=== PATIENT | male | born 1975 | race Caucasian/White ===

== ENCOUNTER 2017-04-30 17:45 | Emergency (ER) | payer BC ==
[2017-04-30] MEDS ORDERED: HYDROCHLOROTHIAZIDE 25 MG TABLET PO ONE (19:50)
--- NOTE | 2017-04-30 19:57 | ER Document Report ---
ED Medical Screen (RME) - General Chief Complaint: High Blood Pressure Stated Complaint: BLOOD PRESSURE PROBLEM Time Seen by Provider: 04/30/17 19:48 Mode of Arrival: Ambulatory Information source: Patient TRAVEL OUTSIDE OF THE [place] IN LAST 30 DAYS: No - HPI Onset: Other - 2 MONTHS OR MORE Onset/Duration: Gradual, Waxing and waning Context: Patient states that, for years he has been told occasionally that his blood pressure was high and need to be further evaluated. He has neglected to do so. Recently he has become more concerned, so he presents himself to the emergency department for treatment on this date. Quality of pain: Dull, Pressure Severity: Mild Associated Symptoms: Headache. denies: Chest pain, Nausea, Shortness of breath , Sweating Exacerbated by: Denies Relieved by: Denies Similar symptoms previously: Yes - SEE ABOVE Recently seen / treated by doctor: No - Related Data Smoking: Non-smoker Frequency of alcohol use: Rare Drug Abuse: None What do you do for a living?: [employer] Allergies/Adverse Reactions: No Known Allergies Allergy (Verified 04/30/17 17:45) Past Medical History - General Information source: Patient - Social History Cigarette use (# per day): No Chew tobacco use (# tins/day): No Frequency of alcohol use: Rare Drug Abuse: None Lives with: Family Family history: Hypertension - Past Medical History Cardiac Medical History: Reports: None Pulmonary Medical History: Reports: None EENT Medical History: Reports: None Neurological Medical History: Reports: None Endocrine Medical History: Reports: None Renal/ Medical History: Reports: None. Denies: Hx Peritoneal Dialysis Malignancy Medical History: Reports None GI Medical History: Reports: None Musculoskeltal Medical History: Reports None Psychiatric Medical History: Reports: None Past Surgical History: Reports: Hx Tonsillectomy Review of Systems - Review of Systems Constitutional: No symptoms reported EENT: No symptoms reported Cardiovascular: No symptoms reported Respiratory: No symptoms reported Gastrointestinal: No symptoms reported Musculoskeletal: No symptoms reported Neurological/Psychological: See HPI Physical Exam - Vital signs Vitals: Temp Pulse Resp BP Pulse Ox 99.3 F 112 H 22 H 158/106 H 97 04/30/17 18:17 04/30/17 18:17 04/30/17 18:17 04/30/17 18:17 04/30/17 18:17 Interpretation: Hypertensive - HAS PARTIALLY RESOLVED SINCE TRIAGE EVAL., Tachycardic, Tachypneic - General General appearance: Appears well, Alert, Anxious In distress: None - HEENT Head: Normocephalic Eyes: Normal Conjunctiva: Normal Ears: Normal Nasal: Normal Mouth/Lips: Normal Mucous membranes: Normal - Respiratory Respiratory status: No respiratory distress Breath sounds: Normal - Cardiovascular Rhythm: Regular Heart sounds: Normal auscultation Murmur: No - Abdominal Inspection: Normal Distension: No distension - Extremities General upper extremity: Normal inspection General lower extremity: Normal inspection. No: Edema - Neurological Neuro grossly intact: Yes Cognition: Normal Orientation: AAOx4 - Psychological Associated symptoms: Normal affect, Normal mood - Skin Skin Temperature: Warm Skin Moisture: Dry Skin Color: Normal Skin Turgor: Elastic Course - Vital Signs Vital signs: Temp Pulse Resp BP Pulse Ox 99.3 F 96 16 146/99 H 96 04/30/17 18:17 04/30/17 19:23 04/30/17 19:23 04/30/17 19:23 04/30/17 19:23 - Laboratory Result Diagrams: 04/30/17 20:55 04/30/17 20:55 Doctor's Discharge - Discharge Clinical Impression: Essential hypertension Condition: Stable Disposition: HOME, SELF-CARE Instructions: High Blood Pressure, Requiring Treatment ([facility]), Hydrochlorothiazide ([facility]) Additional Instructions: BEGIN TAKING HYDROCHLOROTHIAZIDE DIRECTED, ONCE A DAY. FOLLOW UP WITH PRIMARY CARE PROVIDER OF YOUR CHOICE. YOUR BLOOD PRESSURE WILL NEED TO BE RE-CHECKED PERIODICALLY, AND CHANGES IN YOUR MEDICATIONS AND DOSAGE WILL LIKELY BE NECESSARY FOR SATISFACTORY CONTROL. RETURN TO E.R. FOR RE-EVALUATION IF PROBLEMS ARISE, OR IF YOU FEEL YOUR CONDITION IS WORSENING. Prescriptions: Hydrochlorothiazide 25 mg PO DAILY #30 tablet
[2017-04-30 21:40] LABS: ABSOLUTE EOSINOPHILS # (AUTO) 0.2 10^3/uL (0.0-0.6); ABSOLUTE LYMPHOCYTES (AUTO) 0.9 10^3/uL (0.5-4.7); ABSOLUTE MONOCYTES (AUTO) 0.9 10^3/uL (0.1-1.4); ABSOLUTE NEUT (AUTO) 2.8 10^3/uL (1.7-8.2); BASOPHILS % (AUTO) 0.8 % (0-2); EOSINOPHILS % (AUTO) 3.1 % (0-6); HEMATOCRIT 50.9 % (37.9-51.0); HEMOGLOBIN 17.5 g/dL (13.5-17.0); LYMPHOCYTES % (AUTO) 18.6 % (13-45); MEAN CORPUSCULAR HEMOGLOBIN 29.6 pg (27.0-33.4); MEAN CORPUSCULAR HGB CONC 34.3 g/dL (32.0-36.0); MEAN CORPUSCULAR VOLUME 86 fl (80-97); MONOCYTES % (AUTO) 19.1 % (3-13); PLATELET COUNT 215 10^3/uL (150-450); SEGMENTED NEUTROPHILS % (AUTO) 58.4 % (42-78); TOTAL CELLS COUNTED % (AUTO) 100 %; WHITE BLOOD COUNT 4.8 10^3/uL (4.0-10.5)
[2017-04-30 21:55] LABS: ALANINE AMINOTRANSFERASE 53 U/L (21-72); ALBUMIN 4.8 g/dL (3.5-5.0); ALKALINE PHOSPHATASE 83 U/L (38-126); ANION GAP 17 (5-19); ASPARTATE AMINO TRANSFERASE 33 U/L (17-59); BILIRUBIN,DIRECT 0.2 mg/dL (0.0-0.4); BILIRUBIN,TOTAL 0.5 mg/dL (0.2-1.3); BLOOD UREA NITROGEN 15 mg/dL (7-20); CALCIUM 10.2 mg/dL (8.4-10.2); CARBON DIOXIDE 21 mmol/L (22-30); CHLORIDE 102 mmol/L (98-107); GLUCOSE 85 mg/dL (75-110); POTASSIUM 4.3 mmol/L (3.6-5.0); SODIUM 139.7 mmol/L (137-145); TOTAL PROTEIN 7.4 g/dL (6.3-8.2)
[2017-04-30] MEDS ORDERED: DIPHENHYDRAMINE HCL 50 MG/ML VIAL IM ONE (22:20)
[2017-04-30] MEDS ORDERED: METOCLOPRAMIDE HCL INJ/PF 10 MG/2 ML SDV IM ONE (22:20)
--- NOTE | 2017-04-30 23:18 | ER Document Report ---
ED General - General Chief Complaint: High Blood Pressure Stated Complaint: BLOOD PRESSURE PROBLEM Time Seen by Provider: 04/30/17 19:48 Mode of Arrival: Ambulatory Notes: Patient is a 41-year-old male presents with complaint of headache. Patient says he gets his headaches pretty frequently. He says his headaches gradual in onset. Sometimes he has associated photophobia with them. He says he has known high blood pressure but has never followed with a doctor. He says that the headache was a bit worse today than usual he also has a burning sensation into his hands. He has had this burning sensation for as well but says is more intense and will not go away. He therefore talked to his mother who told him he needs to come to the ER. There is a strong family history of high blood pressure as well. He denies chest pain. No shortness of breath. No focal weakness. No other complaints at this time. TRAVEL OUTSIDE OF THE [place] IN LAST 30 DAYS: No - Related Data Allergies/Adverse Reactions: No Known Allergies Allergy (Verified 04/30/17 17:45) Past Medical History - General Information source: Patient - Social History Smoking Status: Never Smoker Cigarette use (# per day): No Chew tobacco use (# tins/day): No Frequency of alcohol use: Rare Drug Abuse: None Lives with: Family Family History: Reviewed & Not Pertinent Patient has suicidal ideation: No Patient has homicidal ideation: No - Past Medical History Cardiac Medical History: Reports: None Pulmonary Medical History: Reports: None EENT Medical History: Reports: None Neurological Medical History: Reports: None Endocrine Medical History: Reports: None Renal/ Medical History: Reports: None. Denies: Hx Peritoneal Dialysis Malignancy Medical History: Reports None GI Medical History: Reports: None Musculoskeltal Medical History: Reports None Psychiatric Medical History: Reports: None Past Surgical History: Reports: Hx Tonsillectomy Review of Systems - Review of Systems Notes: My Normal Review Basic REVIEW OF SYSTEMS: CONSTITUTIONAL : Denies fever, chills, or sweats. Denies recent illness. EENT: Denies eye, ear, throat, or mouth pain or symptoms. Denies nasal or sinus congestion. CARDIOVASCULAR: Denies chest pain. RESPIRATORY: Denies cough, cold, or chest congestion. Denies shortness of breath, difficulty breathing, or wheezing. GASTROINTESTINAL: Denies abdominal pain. Denies nausea, vomiting, or diarrhea. Denies constipation. Last BM: MUSCULOSKELETAL: Denies neck or back pain or joint pain or swelling. SKIN: Denies rash or skin lesions. NEUROLOGICAL: Denies altered mental status or loss of consciousness. Has a headache. Denies weakness or paralysis or loss of use of either side. Denies problems with gait or speech. Denies sensory or motor loss. ALL OTHER SYSTEMS REVIEWED AND NEGATIVE. Physical Exam - Vital signs Vitals: Temp Pulse Resp BP Pulse Ox 99.3 F 112 H 22 H 158/106 H 97 04/30/17 18:17 04/30/17 18:17 04/30/17 18:17 04/30/17 18:17 04/30/17 18:17 - Notes Notes: General Appearance: Well nourished, alert, cooperative, no acute distress, mild obvious discomfort. Vitals: reviewed, See vital signs table. Head: no swelling or tenderness to the head Eyes: PERRL, EOMI, Conjuctiva clear Mouth: No decreasd moisture Throat: No tonsillar inflammation, No airway obstruction, No lymphadenopathy Neck: Supple, Lungs: No wheezing, No rales, No rhonci, No accessory muscle use, good air exchange bilaterally. Heart: Normal rate, Regular rythm, No murmur, no rub Abdomen: Normal BS, soft, No rigidity, No abdominal tenderness, No guarding, no rebound, no abdominal masses, no organomegaly Extremities: strength 5/5 in all extremities, good pulses in all extremities, no swelling or tenderness in the extremities, no edema. Skin: warm, dry, appropriate color, no rash Neuro: speech clear, oriented x 3, normal affect, responds appropriately to questions. Cranial nerves II through XII are intact. Distal sensation intact. Good strength in all 4 extremities. Normal Romberg. Patient is able stand and move around without any obvious problems with coordination or balance.. Course - Re-evaluation Re-evalutation: 04/30/17 23:29 Patient is feeling much improved after receiving medications for headache. Patient has been having ongoing high blood pressure for a long time now. He has been going untreated. I think this is contributing to his headaches. I will place him on lisinopril as well as hydrochlorothiazide. I talked him at length about the importance of following up with the primary care doctor as he needs his blood pressure continued to be managed and may need adjustments in his medications over time. I do not suspect subarachnoid hemorrhage that the patient's headache was not sudden onset. He says he has been having these headaches recurrently for a while now and there was gradual in onset. Patient also mentions he sometimes has photophobia and has migraine-like symptoms as well. I encouraged patient return to ER immediately if he ever has a sudden onset headache, recurrent headaches not responding to treatment, vomiting, focal weakness or numbness, chest pain, or she feels unwell. Patient agrees with plan and will be discharged home. Dictation of this chart was performed using voice recognition software; therefore, there may be some unintended grammatical errors. - Vital Signs Vital signs: Temp Pulse Resp BP Pulse Ox 99.3 F 95 18 150/99 H 95 04/30/17 18:17 04/30/17 23:36 04/30/17 23:36 04/30/17 23:36 04/30/17 23:36 - Laboratory Result Diagrams: 04/30/17 20:55 04/30/17 20:55 Laboratory results interpreted by me: 04/30/17 04/30/17 20:55 20:55 RBC 5.90 H Hgb 17.5 H Monocytes % 19.1 H Carbon Dioxide 21 L Discharge - Discharge Clinical Impression: Essential hypertension Headache Qualifiers: Headache type: unspecified Headache chronicity pattern: episodic headache Intractability: not intractable Qualified Code(s): R51 - Headache Condition: Stable Disposition: HOME, SELF-CARE Instructions: Family Physicians / Practices, High Blood Pressure, Requiring Treatment ([facility]), Hydrochlorothiazide ([facility]) Additional Instructions: BEGIN TAKING HYDROCHLOROTHIAZIDE AND LISINOPRIL DIRECTED, ONCE A DAY. FOLLOW UP WITH PRIMARY CARE PROVIDER OF YOUR CHOICE. YOUR BLOOD PRESSURE WILL NEED TO BE RE-CHECKED PERIODICALLY, AND CHANGES IN YOUR MEDICATIONS AND DOSAGE WILL LIKELY BE NECESSARY FOR SATISFACTORY CONTROL. PLEASE RETURN TO THE ER IF YOU HAVE WORSENING RECURRENT HEADACHES, CHEST PAIN, DIFFICULTY BREATHING, FOCAL WEAKNESS OR NUMBNESS IN YOUR EXTREMITIES, SLURRED SPEECH, OR IF YOU FEEL UNWELL. PLEASE RETURN TO THE ER IF YOU HAVE DIZZINESS OR LIGHT HEADEDNESS THESE COULD BE SIGNS OF YOUR BLOOD PRESSURE BECOMING TOO LOW FROM THE MEDICATIONS. Prescriptions: Hydrochlorothiazide 25 mg PO DAILY #30 tablet Lisinopril 5 mg PO DAILY #30 tablet
[2017-04-30 23:41] VITALS: BP 150/99
== END 2017-04-30 23:41 | disposition home or self-care (01) ==
LOC: ER 17:45
DX: I10 Essential (primary) hypertension (principal); R51 Headache; H53.149 Visual discomfort, unspecified
CPT/HCPCS: 99283; 96372; 36415; 85025; 80053; J1200; J2765

== ENCOUNTER 2017-06-23 14:53 | Emergency (ER) | payer BC, OTHER ==
[2017-06-23] MEDS ORDERED: OXYCODONE-ACETAMINOPHEN 5-325 MG TABLET PO ONE (16:02)
[2017-06-23] MEDS ORDERED: ONDANSETRON 4 MG TAB.RAPDIS PO ONE (16:02)
--- NOTE | 2017-06-23 16:03 | ER Document Report ---
ED Medical Screen (RME) - General Chief Complaint: Fall Injury Stated Complaint: FALL/LOW BACK AND LEFT RIB PAIN Time Seen by Provider: 06/23/17 15:56 Notes: 41-year-old male patient reports pulling on a large pipe wrench overhead when it slipped and he fell landing on his back on a small footstool. This occurred about 2 PM. He complains of severe pain to his left lower flank region. Brief exam shows contusions and abrasions to the left lower flank area. The patient was seen here 2 months ago and put on low dose of lisinopril and hydrochlorothiazide for elevated blood pressure. He has run out of the medications and has not followed up to stay on blood pressure medication. I have greeted and performed a rapid initial assessment of this patient. A comprehensive ED assessment and evaluation of the patient, analysis of test results and completion of the medical decision making process will be conducted by additional ED providers. TRAVEL OUTSIDE OF THE [place] IN LAST 30 DAYS: No - Related Data Allergies/Adverse Reactions: No Known Allergies Allergy (Verified 06/23/17 14:54) Past Medical History - Social History Chew tobacco use (# tins/day): No Frequency of alcohol use: None Drug Abuse: None Family history: Hypertension Renal/ Medical History: Denies: Hx Peritoneal Dialysis Past Surgical History: Reports: Hx Orthopedic Surgery - right thumb, Hx Tonsillectomy Physical Exam - Vital signs Vitals: Temp Pulse Resp BP Pulse Ox 98.2 F 100 14 158/100 H 96 06/23/17 15:03 06/23/17 15:03 06/23/17 15:03 06/23/17 15:03 06/23/17 15:03 Course - Vital Signs Vital signs: Temp Pulse Resp BP Pulse Ox 98.2 F 100 20 158/100 H 96 06/23/17 15:03 06/23/17 15:03 06/23/17 15:52 06/23/17 15:03 06/23/17 15:03
[2017-06-23 16:44] LABS: ABSOLUTE BASOPHILS # (AUTO) 0.1 10^3/uL (0.0-0.2); ABSOLUTE EOSINOPHILS # (AUTO) 0.2 10^3/uL (0.0-0.6); ABSOLUTE LYMPHOCYTES (AUTO) 2.2 10^3/uL (0.5-4.7); ABSOLUTE MONOCYTES (AUTO) 0.9 10^3/uL (0.1-1.4); ABSOLUTE NEUT (AUTO) 7.4 10^3/uL (1.7-8.2); BASOPHILS % (AUTO) 0.5 % (0-2); EOSINOPHILS % (AUTO) 1.6 % (0-6); HEMATOCRIT 47.9 % (37.9-51.0); HEMOGLOBIN 16.5 g/dL (13.5-17.0); LYMPHOCYTES % (AUTO) 20.6 % (13-45); MEAN CORPUSCULAR HEMOGLOBIN 29.5 pg (27.0-33.4); MEAN CORPUSCULAR HGB CONC 34.4 g/dL (32.0-36.0); MEAN CORPUSCULAR VOLUME 86 fl (80-97); MONOCYTES % (AUTO) 8.4 % (3-13); PLATELET COUNT 225 10^3/uL (150-450); RED CELL DISTRIBUTION WIDTH 14.1 % (11.5-14.0); SEGMENTED NEUTROPHILS % (AUTO) 68.9 % (42-78); TOTAL CELLS COUNTED % (AUTO) 100 %; WHITE BLOOD COUNT 10.7 10^3/uL (4.0-10.5)
[2017-06-23 16:48] LABS: APPEARANCE,URINE SLIGHTLY-CLOUDY; BILIRUBIN,URINE NEGATIVE (NEGATIVE); COLOR,URINE YELLOW; GLUCOSE, URINE NEGATIVE (NEGATIVE); KETONES,URINE NEGATIVE (NEGATIVE); LEUKOCYTE ESTERASE,URINE NEGATIVE (NEGATIVE); NITRITE,URINE NEGATIVE (NEGATIVE); PROTEIN,URINE NEGATIVE (NEGATIVE); URINE SPECIFIC GRAVITY 1.021; UROBILINOGEN,URINE NEGATIVE mg/dL (<2.0)
[2017-06-23 16:52] LABS: ALANINE AMINOTRANSFERASE 54 U/L (21-72); ALBUMIN 4.6 g/dL (3.5-5.0); ALKALINE PHOSPHATASE 82 U/L (38-126); ANION GAP 13 (5-19); ASPARTATE AMINO TRANSFERASE 35 U/L (17-59); BILIRUBIN,DIRECT 0.4 mg/dL (0.0-0.4); BILIRUBIN,TOTAL 0.6 mg/dL (0.2-1.3); BLOOD UREA NITROGEN 16 mg/dL (7-20); CALCIUM 10.3 mg/dL (8.4-10.2); CARBON DIOXIDE 26 mmol/L (22-30); CHLORIDE 104 mmol/L (98-107); GLUCOSE 112 mg/dL (75-110); POTASSIUM 3.8 mmol/L (3.6-5.0); SODIUM 143.4 mmol/L (137-145); TOTAL PROTEIN 7.5 g/dL (6.3-8.2)
--- NOTE | 2017-06-23 17:24 | ER Document Report ---
ED Fall - General Chief Complaint: Fall Injury Stated Complaint: FALL/LOW BACK AND LEFT RIB PAIN Time Seen by Provider: 06/23/17 15:56 Mode of Arrival: Ambulatory Information source: Patient TRAVEL OUTSIDE OF THE [place] IN LAST 30 DAYS: No - HPI Patient complains to provider of: left lower rib pain after fall Occurred: Just prior to arrival Notes: Patient is here with complaints of left posterior lower rib pain after falling at work today. States that he was pulling on a pipe wrench that slipped causing him to fall and hit his left lower ribs on the edge of a step that he was standing on. He denies striking his head at that time. States that it did knock the wind out of him. He denies any abdominal pain. Complaining of pain to the left posterior lower ribs. The pain is worse with touch, movement, deep breaths, walking. Nothing seems to make it significantly better. He states that when he was trying to get up he slipped on some water and then hit his head on another stand that he was standing on. He denies any LOC or significant headache. This point is complaining of left posterior lower rib pain. He denies abdominal pain. He denies nausea, vomiting, diarrhea. He denies fevers. He denies any bowel or bladder dysfunction. He is on no blood thinning medications. He denies any rash. He denies any numbness, tingling, weakness to his arms or legs. No other complaints at this time. - Related data Allergies/Adverse Reactions: No Known Allergies Allergy (Verified 06/23/17 14:54) Past Medical History - Social History Smoking Status: Never Smoker Chew tobacco use (# tins/day): No Frequency of alcohol use: None Drug Abuse: None Family History: Reviewed & Not Pertinent Patient has suicidal ideation: No Patient has homicidal ideation: No Renal/ Medical History: Denies: Hx Peritoneal Dialysis Past Surgical History: Reports: Hx Orthopedic Surgery - right thumb, Hx Tonsillectomy Review of Systems - Review of Systems -: Yes All other systems reviewed and negative Physical Exam - Vital signs Vitals: Temp Pulse Resp BP Pulse Ox 98.2 F 100 14 158/100 H 96 06/23/17 15:03 06/23/17 15:03 06/23/17 15:03 06/23/17 15:03 06/23/17 15:03 - Notes Notes: GENERAL: alert, cooperative, nontoxic, no distress. HEAD: normocephalic, small contusion to the right parietal scalp. No laceration. EYES: conjunctiva pink without discharge, no external redness or swelling. PERRL , EOM'S INTACT EARS: no external swelling, no external redness. No hemotympanum EM NOSE: atraumatic, no external swelling. No bleeding MOUTH/THROAT: mucous membranes moist and pink, posterior pharynx without erythema, swelling, exudate. No trismus or drooling. NECK: soft, supple, full range of motion, no meningismus. No midline tenderness step-offs or crepitus to palpation of the cervical spine. CHEST: no distress, lungs clear and equal throughout. No wheezing, rales, rhonchi. CARDIAC: regular rate and rhythm, no murmur, normal capillary refill, normal pulses. No peripheral edema noted. ABDOMEN: Soft, nontender. No ecchymosis. BACK: Limited range of motion, no CVA tenderness. No midline tenderness step- offs or crepitus to palpation of the thoracic or lumbar spine. Abrasion and contusion to the left lower posterior ribs. No crepitus. Mild tenderness to palpation of this area. No active bleeding. EXTREMITIES: full range of motion of all extremities. No redness, no swelling. NEURO: alert and oriented x 3, no focal deficits, full range of motion of all extremities. Cranial nerves II through XII are grossly intact. Reflexes are normal bilaterally. Normal sensation bilaterally. Normal strength bilaterally. That will anesthesia. PYSCH: appropriate mood, affect. Patient is cooperative. SKIN: pink, warm, dry, no rash. Course - Re-evaluation Re-evalutation: 06/23/17 18:22 Patient is nontoxic appearing with stable vitals. Patient slipped and fell and landed on his back injuring his left posterior lower ribs. He does have some abrasion of this area. Patient denies any loss of consciousness. He is on no blood thinning medications. He denies any abdominal pain. Patient has no abdominal tenderness on exam. He is on no blood thinning medications. He is a nonfocal neuro exam. No midline spinal tenderness on exam. Reflexes are normal. Normal sensation. No sign of cauda equina, epidural abscess/bleed, discitis, osteomyelitis, vertebral fracture. X-ray of the left ribs and chest showed no acute abnormality. Vital signs are stable. He is not hypoxic. At this point patient is feeling somewhat better. He will be discharged home with a prescription for Henderson and Naprosyn. Follow-up if not better in 1 week, sooner for worsening pain, high fever, persistent vomiting, abdominal pain, difficulty controlling bowels or bladder, or for any further concerns. The patient is noted to have elevated blood pressure during today's emergency department visit. The patient was informed of this finding. The patient was instructed that this may be related to pre-hypertension and requires further evaluation with a primary care provider. The patient has no hypertensive symptoms at this time. The patient's emergency department workup and current diagnosis were explained to the patient and or family. Follow-up instructions were provided. Medications if prescribed were discussed. Instructions for when to return to the emergency department including specific worrisome symptoms were discussed with the patient and/or family. - Vital Signs Vital signs: Temp Pulse Resp BP Pulse Ox 98.2 F 100 20 158/100 H 96 06/23/17 15:03 06/23/17 15:03 06/23/17 15:52 06/23/17 15:03 06/23/17 15:03 - Laboratory Result Diagrams: 06/23/17 16:23 06/23/17 16:23 Laboratory results interpreted by me: 06/23/17 06/23/17 16:23 16:23 WBC 10.7 H RBC 5.60 H RDW 14.1 H Glucose 112 H Calcium 10.3 H - Diagnostic Test Radiology reviewed: Image reviewed, Reports reviewed - Negative ribs with chest Discharge - Discharge Clinical Impression: Contusion of rib on left side Qualifiers: Encounter type: initial encounter Qualified Code(s): S20.212A - Contusion of left front wall of thorax, initial encounter Abrasion of chest wall Qualifiers: Encounter type: initial encounter Laterality: left Qualified Code(s): S20.312A - Abrasion of left front wall of thorax, initial encounter Condition: Stable Disposition: HOME, SELF-CARE Instructions: Chest Wall Pain ([facility]), Abrasions ([facility]) Additional Instructions: Take medications as prescribed. Keep area clean and dry. Follow-up if not better in 1 week, sooner for increasing pain, fever, difficulty controlling her bowels or bladder, abdominal pain, persistent vomiting, or for any further concerns. Your blood pressure was elevated during today's visit. Have this rechecked with your doctor. Prescriptions: Hydrocodone/Acetaminophen [Henderson 5-325 mg Tablet] 2 tab PO Q6H PRN #15 tab PRN Reason: Naproxen [Naprosyn] 500 mg PO BID #20 tablet Forms: Elevated Blood Pressure, Smoking Cessation Education Referrals: LILIANA PICKERING MD [Primary Care Provider] - Follow up as needed [facility] [Provider Group] - Follow up as needed
--- NOTE | 2017-06-23 17:27 | RADIOLOGY REPORT (SQ) ---
EXAM DESCRIPTION: RIBS LEFT W/PA CHEST COMPLETED DATE/TIME: 06/23/2017 5:13 pm REASON FOR STUDY: left flank injury COMPARISON: None. TECHNIQUE: Frontal view of the chest and additional views of the left ribs acquired. NUMBER OF VIEWS: PA chest Left ribs two views LIMITATIONS: None. FINDINGS: FRONTAL CXR: No pneumothorax. No pleural effusion. No atelectasis or infiltrates. RIBS: No displaced rib fractures. No lytic or blastic bony lesions. OTHER: No other significant finding. IMPRESSION: NO PNEUMOTHORAX. NO DISPLACED RIB FRACTURES. COMMENT: SITE OF TRAUMA/COMPLAINT MARKED/STAMP COMPLETED: No TECHNICAL DOCUMENTATION: JOB ID: [id number] [employer]- All Rights Reserved Reading location - IP/workstation name: [email or web address]
[2017-06-23 18:38] VITALS: BP 168/96
== END 2017-06-23 18:37 | disposition home or self-care (01) ==
LOC: ER 14:53
DX: S20.212A Contusion of left front wall of thorax, initial encounter (principal); S20.312A Abrasion of left front wall of thorax, initial encounter; S20.412A Abrasion of left back wall of thorax, initial encounter; M54.5 Low back pain; R07.81 Pleurodynia; R03.0 Elevated blood-pressure reading, without diagnosis of hypertension; W10.9XXA Fall (on) (from) unspecified stairs and steps, initial encounter; W01.0XXA Fall on same level from slipping, tripping and stumbling without subsequent striking against object, initial encounter; Y99.0 Civilian activity done for income or pay
CPT/HCPCS: 99283; 36415; 85025; 80053; 81001; 71101; S0119